=== PATIENT | male | born 1975 | race Caucasian/White ===

== ENCOUNTER 2018-09-27 19:36 | Emergency (ER) | payer SELFPAY ==
[~2018-09-27] VITALS: Ht 180.3 cm; Wt 122.7 kg
[~2018-09-27 19:36] MED LIST: DIFLUCAN150 MG PO; EPI EZ PEN1 MG/ML IM; LOTRISONE CREAM15 GM TP; NAPROSYN375 MG PO; NO HOME MEDICATIONS; NORCO 325 MG-51 TAB PO; PREDNISONE20 MG PO
[2018-09-27 19:50] VITALS: TEMP 98.6
[2018-09-27 22:02] VITALS: BP 123/96; PULSE 97
== END 2018-09-27 22:07 | disposition home or self-care (01) ==
LOC: COL.ER 19:36
DX: M25.562 Pain in left knee (principal); F17.210 Nicotine dependence, cigarettes, uncomplicated

== ENCOUNTER 2021-02-12 13:24 | Emergency (ER) | payer BC ==
[~2021-02-12] VITALS: Ht 154.9 cm; Wt 124.1 kg
[2021-02-12 13:28] VITALS: TEMP 98.2
[2021-02-12] MEDS ORDERED: PERCOCET 325 MG1 TA2 PO (13:58)
[2021-02-12] MEDS ORDERED: AMOXICILLIN 50500 MG PO (13:58)
[2021-02-12 14:00] VITALS: BP 124/81; PULSE 83
== END 2021-02-12 14:02 | disposition home or self-care (01) ==
LOC: COL.ER 13:24
DX: K04.7 Periapical abscess without sinus (principal); F17.210 Nicotine dependence, cigarettes, uncomplicated